=== PATIENT | male | born 1970 | race Two or more races ===

== ENCOUNTER → 2017-11-19 | Emergency (ER) | payer OTHER ==
[~2017-11-19] VITALS: Ht 180.3 cm; Wt 94.8 kg
== END | disposition home or self-care (01) ==
LOC: ER 21:11
DX: H57.8 Other specified disorders of eye and adnexa (principal)

== ENCOUNTER 2019-02-20 22:49 | Emergency (ER) | payer OTHER ==
[~2019-02-20] VITALS: Ht 182.9 cm; Wt 90.7 kg
== END 2019-02-21 00:58 | disposition home or self-care (01) ==
LOC: ER 22:49
DX: T16.2XXA Foreign body in left ear, initial encounter (principal); W45.8XXA Other foreign body or object entering through skin, initial encounter; Y93.89 Activity, other specified; Y92.89 Other specified places as the place of occurrence of the external cause; Y99.8 Other external cause status

== ENCOUNTER 2019-03-09 21:53 | Emergency (ER) | payer OTHER ==
[~2019-03-09] VITALS: Ht 182.9 cm; Wt 97.5 kg
== END 2019-03-09 23:30 | disposition home or self-care (01) ==
LOC: ER 21:53
DX: S00.83XA Contusion of other part of head, initial encounter (principal); S50.01XA Contusion of right elbow, initial encounter; S30.1XXA Contusion of abdominal wall, initial encounter; W18.39XA Other fall on same level, initial encounter; Y93.89 Activity, other specified; Y92.098 Other place in other non-institutional residence as the place of occurrence of the external cause; Y99.8 Other external cause status

== ENCOUNTER 2024-06-22 19:52 | Emergency (ER) | payer OTHER ==
[~2024-06-22] VITALS: Ht 182.9 cm; Wt 86.2 kg
[2024-06-22] MEDS ORDERED: hydrOXYzine PAMOATE 25 MG CAPSULE PO ONE ×2 (21:15→21:26)
== END 2024-06-22 21:32 | disposition home or self-care (01) ==
LOC: ER 19:54
DX: F41.9 Anxiety disorder, unspecified (principal); R52 Pain, unspecified

== ENCOUNTER 2024-09-04 16:29 | Emergency (ER) | payer OTHER ==
[~2024-09-04] VITALS: Ht 182.9 cm; Wt 90.7 kg
[2024-09-04 19:59] LABS: HEMATOCRIT 45.6 % (39.0-48.0); HEMOGLOBIN 15.6 g/dL (13-16.00); MEAN CELL VOLUME 89.1 fL (80.0-100.00); MEAN CORPUSCULAR HEMOGLOBIN 30.6 pg (27.00-32.0); MEAN CORPUSCULAR HGB CONC 34.3 g/dl (32.0-36.0); PLATELET COUNT 347 K/uL (150-450); RED BLOOD COUNT 5.12 M/uL (4.00-6.00); RED CELL DISTRIBUTION WIDTH 13.5 % (11.5-14.5)
[2024-09-04 20:15] LABS: PARTIAL THROMBOPLASTIN TIME 27.6 SECONDS (22.0-34.0); PROTHROMBIN TIME 10.9 SECONDS (9.0-11.5)
[2024-09-04 20:17] LABS: CALCIUM 9.8 mg/dL (8.5-10.1); CREATININE SERUM 1.03 mg/dL (0.70-1.30); GFR 75.83; POTASSIUM 4.21 mEq/L (3.5-5.1)
== END 2024-09-04 23:31 | disposition home or self-care (01) ==
LOC: ER 16:31
PROVIDERS: Emergency Medicine
DX: R53.81 Other malaise (principal); G44.009 Cluster headache syndrome, unspecified, not intractable

== ENCOUNTER → 2024-12-17 | Emergency (ER) | payer OTHER ==
[~2024-12-17] VITALS: Ht 182.9 cm; Wt 88.5 kg
== END | disposition left against medical advice (07) ==
LOC: ER 13:22
DX: Z53.21 Procedure and treatment not carried out due to patient leaving prior to being seen by health care provider (principal)